=== PATIENT | male | born 1980 | race American Indian/Alaskan Native ===

== ENCOUNTER 2016-12-25 01:34 | Emergency (ER) | payer OTHER ==
[2016-12-25 01:34] VITALS: BMI 26.5
[2016-12-25 01:45] VITALS: BP 124/87; PULSE 79; RESP 18; TEMP 97.5; O2SAT 96
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
== END 2016-12-25 06:50 | disposition home or self-care (01) ==
LOC: H.ER 01:34
DX: F11.10 Opioid abuse, uncomplicated (principal)

== ENCOUNTER 2017-03-12 07:45 | Emergency (ER) | payer OTHER ==
[2017-03-12 07:45] VITALS: BMI 26.5
[2017-03-12 07:55] VITALS: BP 123/92; PULSE 97; RESP 18; TEMP 98; O2SAT 98
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
== END 2017-03-12 14:00 | disposition home or self-care (01) ==
LOC: H.ER 07:45
DX: F19.20 Other psychoactive substance dependence, uncomplicated (principal); F10.129 Alcohol abuse with intoxication, unspecified; I10 Essential (primary) hypertension; Z88.0 Allergy status to penicillin

== ENCOUNTER 2017-05-09 02:50 | Emergency (ER) | payer OTHER ==
[2017-05-09 02:51] VITALS: BMI 26.5
[2017-05-09 02:58] VITALS: BP 129/85; PULSE 77; RESP 18; TEMP 98.7; O2SAT 100
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
== END 2017-05-09 03:28 ==
LOC: H.ER 02:50
DX: F20.9 Schizophrenia, unspecified (principal); Z00.8 Encounter for other general examination; F12.10 Cannabis abuse, uncomplicated; F16.10 Hallucinogen abuse, uncomplicated

== ENCOUNTER 2017-05-09 09:34 | Emergency (ER) | payer OTHER ==
[2017-05-09 09:34] VITALS: BMI 26.5
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
[2017-05-09 10:12] VITALS: BP 136/86; PULSE 69; RESP 16; TEMP 98.1; O2SAT 96
== END 2017-05-09 10:25 ==
LOC: H.ER 09:34
DX: Z86.59 Personal history of other mental and behavioral disorders (principal); Z02.89 Encounter for other administrative examinations; Z00.8 Encounter for other general examination; Z88.0 Allergy status to penicillin

== ENCOUNTER 2017-07-10 18:59 | Emergency (ER) | payer OTHER ==
[2017-07-10 19:00] VITALS: BMI 26.5
--- NOTE | 2017-07-10 19:52 | ED PDOC ---
HPI: Psych/Substance Abuse Time Seen by Provider: 07/10/17 19:09 Chief Complaint (Nursing): Substance Abuse Chief Complaint (Provider): Altered Mental Status ED Caveat: Altered Mental Status, Intoxicated History Per: Patient, EMS History/Exam Limitations: intoxication Additional Complaint(s): 36 year old male presents to the ED brought in by EMS for altered mental status. Patient is poor historian due to intoxication. [place] and poorly responsive. He was able to report to EMS and police on scene that he had taken a few tabs of Percocet today. Otherwise, patient not volunteering any other information. Per previous charts reviewed, patient has history of schizophrenia and substance abuse. Past Medical History Reviewed: Historical Data, Nursing Documentation, Vital Signs Vital Signs: Last Vital Signs Temp 97.0 F L 07/10/17 19:03 Pulse 63 07/10/17 19:03 Resp 16 07/10/17 19:03 BP 157/83 H 07/10/17 19:03 Pulse Ox 99 07/10/17 19:03 - Medical History PMH: Bronchitis, Schizophrenia Denies: Diabetes, Hepatitis, HIV, HTN, Seizures, Sexually Transmitted Disease - Surgical History Surgical History: Back Surgery - Family History Family History: States: Unknown Family Hx - Living Arrangements Living Arrangements: Other (Undomiciled) - Immunization History Hx Tetanus Toxoid Vaccination: No Hx Influenza Vaccination: No Hx Pneumococcal Vaccination: No - Home Medications Home Medications: Ambulatory Orders Medication Instructions Recorded No Known Home Med 05/25/16 - Allergies Allergies/Adverse Reactions: Allergies Allergy/AdvReac Type Severity Reaction Status Date / Time Penicillins Allergy RASH Verified 12/25/16 01:43 PORK Allergy SWELLING Verified 10/08/16 09:18 Review of Systems Review Of Systems: ROS cannot be obtained secondary to pt's inabilty to answer questions. (Altered mental status) Physical Exam - Reviewed Nursing Documentation Reviewed: Yes Vital Signs Reviewed: Yes - Physical Exam Appears: Positive for: No Acute Distress (but dissheveled) Head Exam: Positive for: ATRAUMATIC, NORMOCEPHALIC Skin: Positive for: Warm, Dry Eye Exam: Positive for: EOMI, PERRL ENT: Positive for: Pharynx Is (clear) Neck: Positive for: Painless ROM, Supple Cardiovascular/Chest: Positive for: Regular Rate, Rhythm, Chest Non Tender. Negative for: Murmur Respiratory: Positive for: Normal Breath Sounds. Negative for: Wheezing Gastrointestinal/Abdominal: Positive for: Soft. Negative for: Tenderness Back: Positive for: Normal Inspection. Negative for: Muscle Spasm Extremity: Positive for: Normal ROM. Negative for: Deformity Lymphatic: Negative for: Adenopathy Neurologic/Psych: Positive for: Alert (but minimally communicative and confused) , Mood/Affect (flat). Negative for: Oriented, Motor/Sensory Deficits - Laboratory Results Result Diagrams: 07/10/17 19:48 07/10/17 19:48 - ECG ECG: Positive for: Interpreted By Me ECG Rhythm: Positive for: Normal ST Segment, Sinus Rhythm, Nonspecific Changes O2 Sat by Pulse Oximetry: 99 Pulse Ox Interpretation: Normal Medical Decision Making Medical Decision Making: Impression: Altered Mental Status Differential includes intoxication, electrolyte abnormality, metabolic encephalopathy, overdose Plan: -Head CT -Acetaminophen level -Blood alcohol -Drug Screen -Magnesium -Phosphorous -Salicylate -Urine dip -CBC -PT and PTT Nurse reports live found on patient as well. Permethrin ordered. Reviewed patient's previous charts. Multiple visits for substance abuse, PCP positive in previous UDS. 10p Pt ate in ER, but persistently lethargic. Observation continued. Scribe Attestation: Documented by Gerardo Jean Baptiste, acting as a scribe for Lyssa Bishop MD Provider Scribe Attestation: All medical record entries made by the Scribe were at my direction and personally dictated by me. I have reviewed the chart and agree that the record accurately reflects my personal performance of the history, physical exam, medical decision making, and the department course for this patient. I have also personally directed, reviewed, and agree with the discharge instructions and disposition. Disposition - Clinical Impression Clinical Impression: PCP (phencyclidine) abuse - Disposition Disposition: Transfer of Care Disposition Time: 00:00 Condition: STABLE Patient Signed Over To: Juan J La Handoff Comments: Pending sobriety
[2017-07-10 19:57] LABS: BASO # 0.1 K/uL (0.0-0.2); EOS # 0.1 K/uL (0.0-0.7); EOS % 2.2 % (0.0-4.0); LYMPH # 1.5 K/uL (1.0-4.3); LYMPH % 24.5 % (20.0-40.0); MEAN CELL VOLUME 87.4 fl (80.0-94.0); MEAN CORPUSCULAR HEMOGLOBIN 28.6 pg (27.0-31.0); MEAN CORPUSCULAR HGB CONC 32.8 g/dL (33.0-37.0); MEAN PLATELET VOLUME 7.4 fl (7.2-11.7); MONO # 0.7 K/uL (0.0-0.8); MONO % 11.3 % (0.0-10.0); NEUT # 3.7 K/uL (1.8-7.0); NRBC % 0.1 % (0.0-0.0); RED CELL DISTRIBUTION WIDTH 13.1 % (11.5-14.5)
[2017-07-10 20:11] LABS: ALB/GLOB RATIO 1.3 (1.0-2.1); ALCOHOL SERUM < 10 mg/dl (0-10); ALKALINE PHOSPHATASE 71 U/L (38-126); ALT/SGPT 34 U/L (21-72); AST/SGOT 33 U/L (17-59); BILIRUBIN,TOTAL 0.8 mg/dl (0.2-1.3); BLOOD UREA NITROGEN 7 mg/dl (9-20); CALCIUM 9.5 mg/dL (8.4-10.2); CARBON DIOXIDE 30 mmol/L (22-30); CHLORIDE 104 mmol/L (98-107); GFR AFRICAN-AMERICAN > 60; GLUCOSE,RANDOM 80 mg/dL (75-110); MAGNESIUM 2.3 MG/DL (1.6-2.3); PHOSPHOROUS 3.1 mg/dl (2.5-4.5); SODIUM 143 mmol/l (132-148); TOTAL PROTEIN 8.1 G/DL (6.3-8.2)
[2017-07-10 21:19] LABS: POTASSIUM 4.3 MMOL/L (3.6-5.0)
[2017-07-10] MEDS ORDERED: Permethrin 1% Kit 59 ML BOTTLE TOP ONE (21:26)
--- NOTE | 2017-07-11 00:15 | ED PDOC ---
- Laboratory Results Result Diagrams: 07/10/17 19:48 07/10/17 19:48 - ECG O2 Sat by Pulse Oximetry: 99 Medical Decision Making Medical Decision Making: Time: 0000 Patient signed out to me from Dr. Bishop pending sobriety. 0605 Upon re-evaluation, patient is awake, alert, and oriented x3. Patient is stable for discharge home. Scribe Attestation: Documented by Nhi Box and Lesly Gomez, acting as a scribe for Juan J La MD. Provider Scribe Attestation: All medical record entries made by the Scribe were at my direction and personally dictated by me. I have reviewed the chart and agree that the record accurately reflects my personal performance of the history, physical exam, medical decision making, and the department course for this patient. I have also personally directed, reviewed, and agree with the discharge instructions and disposition. Disposition - Clinical Impression Clinical Impression: PCP (phencyclidine) abuse - Disposition Disposition: Routine/Home Disposition Time: 06:05 Condition: STABLE Instructions: Polysubstance Abuse (ED) Forms: [employer] (Citizen [place])
[2017-07-11 05:18] VITALS: BP 140/94; PULSE 93; RESP 14; TEMP 98.2
[2017-07-11 06:16] VITALS: O2SAT 99
--- NOTE | 2017-07-11 12:09 | CARD ---
APPROVED REPORT EKG Measurement Heart [id number] <Conclusion> Normal sinus rhythm Incomplete right bundle branch block Nonspecific T wave abnormality Abnormal ECG
== END 2017-07-11 06:59 | disposition home or self-care (01) ==
LOC: H.ER 18:59
DX: F19.10 Other psychoactive substance abuse, uncomplicated (principal); F20.9 Schizophrenia, unspecified; Z88.0 Allergy status to penicillin

== ENCOUNTER 2017-08-12 14:03 | Emergency (ER) | payer OTHER ==
[2017-08-12 14:04] VITALS: BMI 26.5
[2017-08-12 14:10] VITALS: BP 118/75; PULSE 90; RESP 18; TEMP 98.5; O2SAT 100
[2017-08-12 16:01] LABS: HEMATOCRIT 40.8 % (35.0-51.0); MEAN CELL VOLUME 88.3 fl (80.0-94.0); MEAN CORPUSCULAR HEMOGLOBIN 28.5 pg (27.0-31.0); MEAN CORPUSCULAR HGB CONC 32.3 g/dL (33.0-37.0); RED CELL DISTRIBUTION WIDTH 13.3 % (11.5-14.5); WHITE BLOOD COUNT 5.9 K/uL (4.8-10.8)
[2017-08-12 16:10] LABS: ALB/GLOB RATIO 1.2 (1.0-2.1); ALCOHOL SERUM < 10 mg/dl (0-10); ALKALINE PHOSPHATASE 76 U/L (38-126); ALT/SGPT 30 U/L (21-72); AST/SGOT 17 U/L (17-59); BILIRUBIN,TOTAL 0.4 mg/dl (0.2-1.3); BLOOD UREA NITROGEN 12 mg/dl (9-20); CARBON DIOXIDE 28 mmol/L (22-30); CHLORIDE 110 mmol/L (98-107); GFR AFRICAN-AMERICAN > 60; GLUCOSE,RANDOM 70 mg/dL (75-110); POTASSIUM 3.8 MMOL/L (3.6-5.0); SODIUM 144 mmol/l (132-148); TOTAL PROTEIN 7.1 G/DL (6.3-8.2)
--- NOTE | 2017-08-12 16:20 | ED PDOC ---
HPI: General Adult Time Seen by Provider: 08/12/17 14:19 Chief Complaint (Nursing): Lower Extremity Problem/Injury Chief Complaint (Provider): Fall History Per: Patient History/Exam Limitations: no limitations Onset/Duration Of Symptoms: Days (x1) Additional History Per: EMS Additional Complaint(s): Black Rocha is a 36 year old male, with a past medical history of bronchitis and schizophrenia, who was brought to the emergency department by EMS for ETOH and head injury s/p fall onset today. Per EMS, patient was found on the ground and reported falling, hitting his head and knee. Upon arrival patient denies any injuries. In our records, patient has no previous history of alcohol abuse. No further medical complaints. Past Medical History Reviewed: Historical Data, Nursing Documentation, Vital Signs Vital Signs: Last Vital Signs Temp 98.5 F 08/12/17 14:07 Pulse 90 08/12/17 14:07 Resp 18 08/12/17 14:07 BP 118/75 08/12/17 14:07 Pulse Ox 100 08/12/17 17:02 - Medical History PMH: Bronchitis, Schizophrenia Denies: Diabetes, Hepatitis, HIV, HTN, Chronic Kidney Disease, Seizures, Sexually Transmitted Disease - Surgical History Surgical History: Back Surgery - Family History Family History: States: Unknown Family Hx - Social History Current smoker - smoking cessation education provided: Yes (Heavy smoker >10 cigarettes daily) Alcohol: Other (few days per week) Drugs: Other (PCP (per old chart)) - Immunization History Hx Tetanus Toxoid Vaccination: No Hx Influenza Vaccination: No Hx Pneumococcal Vaccination: No - Home Medications Home Medications: Ambulatory Orders Medication Instructions Recorded No Known Home Med 05/25/16 - Allergies Allergies/Adverse Reactions: Allergies Allergy/AdvReac Type Severity Reaction Status Date / Time Penicillins Allergy RASH Verified 12/25/16 01:43 PORK Allergy SWELLING Verified 10/08/16 09:18 Review of Systems ROS Statement: Except As Marked, All Systems Reviewed And Found Negative Constitutional: Negative for: Other (injuries) Musculoskeletal: Negative for: Leg Pain Psych: Negative for: Other (OH consumption) Physical Exam - Reviewed Nursing Documentation Reviewed: Yes Vital Signs Reviewed: Yes - Physical Exam Appears: Positive for: Well, Non-toxic, No Acute Distress Head Exam: Positive for: ATRAUMATIC, NORMAL INSPECTION, NORMOCEPHALIC Skin: Positive for: Normal Color, Warm, Dry Eye Exam: Positive for: EOMI, Normal appearance, PERRL Neck: Positive for: Normal, Painless ROM, Supple Respiratory: Negative for: Respiratory Distress Extremity: Positive for: Normal ROM. Negative for: Deformity, Swelling Neurologic/Psych: Positive for: Alert, Oriented - Laboratory Results Result Diagrams: 08/12/17 15:52 08/12/17 15:52 - ECG O2 Sat by Pulse Oximetry: 100 (RA) Pulse Ox Interpretation: Normal Medical Decision Making Medical Decision Making: Initial Plan: --Head w/o contrast [CT] --CBC, CMP, alcohol --reevaluation [address] FINDINGS: HEMORRHAGE: No intracranial hemorrhage. BRAIN: No mass effect or edema. No atrophy or chronic microvascular ischemic changes. VENTRICLES: Unremarkable. No hydrocephalus. CALVARIUM: Unremarkable. PARANASAL SINUSES: Moderate to severe right maxillary sinus mucosal thickening. MASTOID AIR CELLS: Unremarkable as visualized. No inflammatory changes. OTHER FINDINGS: Dysconjugate gaze. IMPRESSION: No acute intracranial pathology. Right maxillary sinus disease. 0 -CT and labs normal. Patient in bed with steady gait. Pt reports using PCP earlier today. ~ Scribe Attestation: Documented by Uday Ambrocio, acting as a scribe for Kassandra Kang PA-C. Provider Scribe Attestation: All medical record entries made by the Scribe were at my direction and personally dictated by me. I have reviewed the chart and agree that the record accurately reflects my personal performance of the history, physical exam, medical decision making, and the department course for this patient. I have also personally directed, reviewed, and agree with the discharge instructions and disposition. Disposition - Clinical Impression Clinical Impression: PCP (phencyclidine) abuse - Patient ED Disposition Is Patient to be Admitted: No - Disposition Disposition: Routine/Home Disposition Time: 17:14 Condition: STABLE Instructions: Polysubstance Abuse (ED) Forms: [employer] (Vietnamese)
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
== END 2017-08-12 17:20 | disposition home or self-care (01) ==
LOC: H.ER 14:03
DX: F16.10 Hallucinogen abuse, uncomplicated (principal); J32.0 Chronic maxillary sinusitis; Z88.0 Allergy status to penicillin; F17.210 Nicotine dependence, cigarettes, uncomplicated; Z86.59 Personal history of other mental and behavioral disorders

== ENCOUNTER 2017-08-31 08:34 | Emergency (ER) | payer OTHER ==
[2017-08-31 08:34] VITALS: BMI 26.5
[2017-08-31 08:53] VITALS: BP 127/80; PULSE 90; RESP 16; TEMP 98.2; O2SAT 96
--- NOTE | 2017-08-31 09:21 | ED PDOC ---
HPI: Psych/Substance Abuse Time Seen by Provider: 08/31/17 09:15 Chief Complaint (Nursing): Psychiatric Evaluation History Per: EMS Onset/Duration Of Symptoms: Unknown Current Symptoms Are (Timing): Still Present Modifying Factor(s): None Severity: Mild Associated Symptoms: Agitation. denies: Suicidal Thoughts Additional Complaint(s): [place] When awoken became aggressive. Denies SI/HI Past Medical History Vital Signs: Last Vital Signs Temp 98.2 F 08/31/17 08:52 Pulse 90 08/31/17 08:52 Resp 16 08/31/17 08:52 BP 127/80 08/31/17 08:52 Pulse Ox 96 08/31/17 08:52 - Medical History PMH: Bipolar Disorder, Bronchitis, Schizophrenia Denies: Diabetes, Hepatitis, HIV, HTN, Chronic Kidney Disease, Seizures, Sexually Transmitted Disease - Surgical History Surgical History: Back Surgery - Family History Family History: States: Unknown Family Hx - Immunization History Hx Tetanus Toxoid Vaccination: No Hx Influenza Vaccination: No Hx Pneumococcal Vaccination: No - Home Medications Home Medications: Ambulatory Orders Medication Instructions Recorded No Known Home Med 05/25/16 - Allergies Allergies/Adverse Reactions: Allergies Allergy/AdvReac Type Severity Reaction Status Date / Time Penicillins Allergy RASH Verified 12/25/16 01:43 PORK Allergy SWELLING Verified 10/08/16 09:18 Review of Systems ROS Statement: Except As Marked, All Systems Reviewed And Found Negative Physical Exam - Reviewed Nursing Documentation Reviewed: Yes Vital Signs Reviewed: Yes - Physical Exam Appears: Positive for: Non-toxic, No Acute Distress Head Exam: Positive for: ATRAUMATIC, NORMAL INSPECTION, NORMOCEPHALIC Skin: Positive for: Normal Color, Warm, DRY Eye Exam: Positive for: EOMI, Normal appearance, PERRL ENT: Positive for: Normal ENT Inspection Neck: Positive for: Normal, Painless ROM Cardiovascular/Chest: Positive for: Regular Rate, Rhythm Respiratory: Positive for: CNT, Normal Breath Sounds Gastrointestinal/Abdominal: Positive for: Normal Exam, Bowel Sounds, Soft Back: Positive for: Normal Inspection Extremity: Positive for: Normal ROM Neurologic/Psych: Positive for: Alert. Negative for: Motor/Sensory Deficits - ECG O2 Sat by Pulse Oximetry: 96 Disposition - Clinical Impression Clinical Impression: Substance abuse - Patient ED Disposition Is Patient to be Admitted: No - Disposition Referrals: [facility] [Outside] Disposition: Routine/Home Disposition Time: 11:18 Condition: FAIR Instructions: Polysubstance Abuse (ED) Forms: [employer] (Divehi)
--- NOTE | 2017-09-02 16:03 | CARD ---
APPROVED REPORT EKG Measurement Heart [id number] 154P66 [id number] <Conclusion> Normal sinus rhythm Possible Left atrial enlargement Borderline ECG
== END 2017-08-31 11:44 | disposition home or self-care (01) ==
LOC: H.ER 08:34
DX: F19.10 Other psychoactive substance abuse, uncomplicated (principal); F20.9 Schizophrenia, unspecified; F31.9 Bipolar disorder, unspecified; Z88.0 Allergy status to penicillin

== ENCOUNTER 2017-09-02 02:55 | Emergency (ER) | payer OTHER ==
[2017-09-02 02:55] VITALS: BMI 26.5
[2017-09-02 03:27] VITALS: BP 127/79; PULSE 89; RESP 18; TEMP 98.9; O2SAT 100
--- NOTE | 2017-09-02 03:57 | ED PDOC ---
HPI: Psych/Substance Abuse Time Seen by Provider: 09/02/17 03:23 Chief Complaint (Nursing): Alcohol Ingestion Chief Complaint (Provider): Alcohol Ingestion ED Caveat: Intoxicated History Per: EMS History/Exam Limitations: intoxication Onset/Duration Of Symptoms: Mins (prior to arrival) Current Symptoms Are (Timing): Still Present Additional Complaint(s): 36 year old male who presents to the emergency department via EMS for an evaluation of presumed intoxication. Currently patient has no complaints adn wishes to sleep. PMD: none provided Past Medical History Reviewed: Historical Data, Nursing Documentation, Vital Signs Vital Signs: Last Vital Signs Temp 98.9 F 09/02/17 03:04 Pulse 89 09/02/17 03:04 Resp 18 09/02/17 03:04 BP 127/79 09/02/17 03:04 Pulse Ox 100 09/02/17 03:04 - Medical History PMH: Bipolar Disorder, Bronchitis, Schizophrenia Denies: Diabetes, Hepatitis, HIV, HTN, Chronic Kidney Disease, Seizures, Sexually Transmitted Disease - Surgical History Surgical History: Back Surgery - Family History Family History: States: Unknown Family Hx - Immunization History Hx Tetanus Toxoid Vaccination: No Hx Influenza Vaccination: No Hx Pneumococcal Vaccination: No - Home Medications Home Medications: Ambulatory Orders Medication Instructions Recorded Piperonyl Butoxide/Pyrethrins 118 ml TP DAILY #1 shampoo 09/02/17 [Lice Treatment Shampoo] - Allergies Allergies/Adverse Reactions: Allergies Allergy/AdvReac Type Severity Reaction Status Date / Time Penicillins Allergy RASH Verified 09/02/17 03:24 PORK Allergy SWELLING Verified 09/02/17 03:24 Review of Systems ROS Statement: Except As Marked, All Systems Reviewed And Found Negative Physical Exam - Reviewed Nursing Documentation Reviewed: Yes Vital Signs Reviewed: Yes - Physical Exam Appears: Positive for: Well, Non-toxic, No Acute Distress Head Exam: Positive for: ATRAUMATIC, NORMAL INSPECTION, NORMOCEPHALIC ENT: Positive for: Normal ENT Inspection Neck: Positive for: Normal, Painless ROM Cardiovascular/Chest: Positive for: Regular Rate, Rhythm, Chest Non Tender Respiratory: Positive for: Normal Breath Sounds. Negative for: Decreased Breath Sounds, Respiratory Distress Gastrointestinal/Abdominal: Positive for: Normal Exam, Soft Extremity: Positive for: Normal ROM Neurologic/Psych: Positive for: supervisor burling and joining II-XII, Other (lice on scalp). Negative for : Alert, Oriented, Motor/Sensory Deficits, Mood/Affect, Aphasia - ECG O2 Sat by Pulse Oximetry: 100 (RA) Pulse Ox Interpretation: Normal Medical Decision Making Medical Decision Making: Initial Impression: Lice Initial Plan: * Arleen * D/c home Scribe Attestation: Documented by Mona Agrawal, acting as a scribe for Dash Williamson MD. Provider Scribe Attestation: All medical record entries made by the Scribe were at my direction and personally dictated by me. I have reviewed the chart and agree that the record accurately reflects my personal performance of the history, physical exam, medical decision making, and the department course for this patient. I have also personally directed, reviewed, and agree with the discharge instructions and disposition. Disposition - Clinical Impression Clinical Impression: Lice - Disposition Referrals: [facility] [Outside] Disposition: Routine/Home Disposition Time: 06:59 Condition: STABLE Prescriptions: Piperonyl Butoxide/Pyrethrins [Lice Treatment Shampoo] 118 ml TP DAILY #1 shampoo Instructions: Body Lice (ED) Forms: [employer] (Wolof)
== END 2017-09-02 07:16 | disposition home or self-care (01) ==
LOC: H.ER 02:55
DX: B85.2 Pediculosis, unspecified (principal); F10.129 Alcohol abuse with intoxication, unspecified; F20.9 Schizophrenia, unspecified; F31.9 Bipolar disorder, unspecified; Z88.0 Allergy status to penicillin

== ENCOUNTER 2017-09-09 10:00 | Emergency (ER) | payer OTHER ==
[2017-09-09 10:05] VITALS: BMI 28.0
[2017-09-09 13:08] VITALS: O2SAT 97
--- NOTE | 2017-09-09 14:34 | ED PDOC ---
HPI: Psych/Substance Abuse Time Seen by Provider: 09/09/17 10:05 Chief Complaint (Nursing): Syncope Chief Complaint (Provider): Found sleeping Additional Complaint(s): Pt found sleeping in [place]. Pt reports + drug and alcohol use today. No other complaints. Past Medical History Vital Signs: Last Vital Signs Temp 97.4 F L 09/09/17 10:04 Pulse 82 09/09/17 13:08 Resp 18 09/09/17 13:08 BP 173/96 H 09/09/17 10:04 Pulse Ox 97 09/09/17 13:08 - Medical History PMH: Bipolar Disorder, Bronchitis, Schizophrenia Denies: Diabetes, Hepatitis, HIV, HTN, Chronic Kidney Disease, Seizures, Sexually Transmitted Disease - Surgical History Surgical History: Back Surgery - Family History Family History: States: Unknown Family Hx - Immunization History Hx Tetanus Toxoid Vaccination: No Hx Influenza Vaccination: No Hx Pneumococcal Vaccination: No - Home Medications Home Medications: Ambulatory Orders Medication Instructions Recorded Piperonyl Butoxide/Pyrethrins 118 ml TP DAILY #1 shampoo 09/02/17 [Lice Treatment Shampoo] - Allergies Allergies/Adverse Reactions: Allergies Allergy/AdvReac Type Severity Reaction Status Date / Time Penicillins Allergy RASH Verified 09/02/17 03:24 PORK Allergy SWELLING Verified 09/02/17 03:24 Review of Systems Cardiovascular: Negative for: Chest Pain Respiratory: Negative for: Cough Gastrointestinal: Negative for: Abdominal Pain Neurological: Negative for: Headache, Dizziness Physical Exam - Reviewed Nursing Documentation Reviewed: Yes Vital Signs Reviewed: Yes - Physical Exam Appears: Positive for: Well, No Acute Distress Head Exam: Positive for: ATRAUMATIC, NORMAL INSPECTION Skin: Positive for: Normal Color (+ LIce), Warm, Dry Cardiovascular/Chest: Positive for: Regular Rate, Rhythm Respiratory: Positive for: Normal Breath Sounds Extremity: Positive for: Normal ROM Neurologic/Psych: Positive for: Alert, Oriented. Negative for: Motor/Sensory Deficits - ECG O2 Sat by Pulse Oximetry: 97 - Progress Re-evaluation Time: 14:00 Condition: Improved Medical Decision Making Medical Decision Makin yo found sleeping in [employer]. - EKG - accucheck - decontamination - EtOH level - UDS Disposition - Clinical Impression Clinical Impression: Substance abuse - Disposition Referrals: [facility] [Outside] Disposition: Routine/Home Disposition Time: 14:50 Condition: STABLE Instructions: Polysubstance Abuse (ED) Forms: [employer] (Greenlandic)
[2017-09-09 14:50] VITALS: BP 115/69; PULSE 84; RESP 16; TEMP 97.5
--- NOTE | 2017-09-10 09:27 | CARD ---
APPROVED REPORT EKG Measurement Heart [id number] [place] [id number] <Conclusion> Normal sinus rhythm Nonspecific T wave abnormality Abnormal ECG
== END 2017-09-09 15:24 | disposition home or self-care (01) ==
LOC: H.ER 10:00
DX: F19.10 Other psychoactive substance abuse, uncomplicated (principal); F20.9 Schizophrenia, unspecified; F31.9 Bipolar disorder, unspecified; Z88.0 Allergy status to penicillin

== ENCOUNTER 2017-10-15 16:37 | Emergency (ER) | payer OTHER ==
[2017-10-15 16:37] VITALS: BMI 28.0
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
--- NOTE | 2017-10-15 18:12 | RAD ---
HISTORY: cough COMPARISON: No prior. FINDINGS: LUNGS: No active pulmonary disease. PLEURA: No significant pleural effusion identified, no pneumothorax apparent. CARDIOVASCULAR: Normal. OSSEOUS STRUCTURES: No significant abnormalities. VISUALIZED UPPER ABDOMEN: Normal. OTHER FINDINGS: None. IMPRESSION: No active disease.
[2017-10-15 18:16] LABS: BASO % 1.1 % (0.0-2.0); EOS # 0.1 K/uL (0.0-0.7); EOS % 2.1 % (0.0-4.0); HEMOGLOBIN 14.6 g/dL (12.0-18.0); LYMPH # 1.4 K/uL (1.0-4.3); LYMPH % 34.4 % (20.0-40.0); MEAN CELL VOLUME 86.5 fl (80.0-94.0); MEAN CORPUSCULAR HEMOGLOBIN 28.2 pg (27.0-31.0); MEAN CORPUSCULAR HGB CONC 32.6 g/dL (33.0-37.0); MEAN PLATELET VOLUME 7.2 fl (7.2-11.7); MONO # 0.5 K/uL (0.0-0.8); MONO % 12.8 % (0.0-10.0); NEUT % 49.6 % (50.0-75.0); NRBC % 0.2 % (0.0-0.0); RBC 5.19 Mil/uL (4.40-5.90); RED CELL DISTRIBUTION WIDTH 13.4 % (11.5-14.5); WHITE BLOOD COUNT 4.1 K/uL (4.8-10.8)
[2017-10-15 18:19] LABS: ALB/GLOB RATIO 1.2 (1.0-2.1); ALBUMIN 4.2 g/dL (3.5-5.0); ALT/SGPT 35 U/L (21-72); AST/SGOT 31 U/L (17-59); BLOOD UREA NITROGEN 4 mg/dl (9-20); CALCIUM 9.5 mg/dL (8.4-10.2); GFR AFRICAN-AMERICAN > 60; GFR NON-AFRICAN AMERICAN > 60
[2017-10-15 20:16] VITALS: BP 134/80; PULSE 91; RESP 15; TEMP 98.5; O2SAT 98
--- NOTE | 2017-10-16 11:17 | CARD ---
APPROVED REPORT EKG Measurement Heart [id number] <Conclusion> Normal sinus rhythm with sinus arrhythmia Normal ECG
== END 2017-10-15 20:17 | disposition home or self-care (01) ==
LOC: H.ER 16:37
DX: F16.10 Hallucinogen abuse, uncomplicated; F20.9 Schizophrenia, unspecified; F31.9 Bipolar disorder, unspecified; Z88.0 Allergy status to penicillin

== ENCOUNTER 2018-03-29 14:27 | Emergency (ER) | payer OTHER ==
[2018-03-29 14:27] VITALS: BMI 28.0
[2018-03-29 14:34] VITALS: BP 130/78; PULSE 91; RESP 16; TEMP 98.6; O2SAT 98
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
== END 2018-03-29 15:23 ==
LOC: H.ER 14:27
DX: F19.10 Other psychoactive substance abuse, uncomplicated (principal); F10.129 Alcohol abuse with intoxication, unspecified; F17.200 Nicotine dependence, unspecified, uncomplicated; F20.9 Schizophrenia, unspecified; F31.9 Bipolar disorder, unspecified; G89.29 Other chronic pain; Z88.0 Allergy status to penicillin

== ENCOUNTER 2018-03-29 17:42 | Emergency (ER) | payer OTHER ==
[2018-03-29 17:42] VITALS: BMI 28.0
[2018-03-29 17:49] VITALS: BP 124/78; PULSE 62; RESP 16; TEMP 97.8; O2SAT 97
[2018-03-29] MEDS ORDERED: Sodium Chloride 0.9% 1,000 ML IV STA (18:01)
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
== END 2018-03-29 19:05 ==
LOC: H.ER 17:42
DX: F19.10 Other psychoactive substance abuse, uncomplicated (principal); F20.9 Schizophrenia, unspecified; F31.9 Bipolar disorder, unspecified; Z88.0 Allergy status to penicillin; G89.29 Other chronic pain

== ENCOUNTER 2018-04-25 13:52 | Emergency (ER) | payer OTHER ==
[2018-04-25 13:52] VITALS: BMI 28.0
[2018-04-25 13:59] VITALS: BP 133/94; TEMP 97
[2018-04-25 14:31] VITALS: PULSE 69; RESP 18; O2SAT 98
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
[2018-04-25 15:03] LABS: BASO % 0.5 % (0.0-2.0); EOS % 1.1 % (0.0-4.0); HEMOGLOBIN 13.4 g/dL (12.0-18.0); LYMPH # 1.1 K/uL (1.0-4.3); LYMPH % 33.7 % (20.0-40.0); MEAN CELL VOLUME 86.1 fl (80.0-94.0); MEAN CORPUSCULAR HEMOGLOBIN 29.2 pg (27.0-31.0); MEAN CORPUSCULAR HGB CONC 33.9 g/dL (33.0-37.0); MEAN PLATELET VOLUME 7.6 fl (7.2-11.7); MONO # 0.4 K/uL (0.0-0.8); MONO % 12.3 % (0.0-10.0); NEUT # 1.7 K/uL (1.8-7.0); NEUT % 52.4 % (50.0-75.0); NRBC % 0.1 % (0.0-0.0); RBC 4.58 Mil/uL (4.40-5.90); WHITE BLOOD COUNT 3.2 K/uL (4.8-10.8)
[2018-04-25 15:20] LABS: ALB/GLOB RATIO 1.3 (1.0-2.1); ALT/SGPT 25 U/L (21-72); AST/SGOT 20 U/L (17-59); BLOOD UREA NITROGEN 9 mg/dl (9-20); CALCIUM 9.2 mg/dL (8.4-10.2); GFR AFRICAN-AMERICAN > 60; GFR NON-AFRICAN AMERICAN > 60
[2018-04-25] MEDS ORDERED: Potassium Chloride 20 mEq ER Tab PO ONE (15:21)
--- NOTE | 2018-04-25 16:07 | CT ---
Date of service: 04/25/2018 PROCEDURE: CT HEAD WITHOUT CONTRAST. HISTORY: r/o bleed COMPARISON: 08/12/2017. TECHNIQUE: Axial computed tomography images were obtained through the head/brain without intravenous contrast. Radiation dose: Total exam DLP = 814.53 mGy-cm. This CT exam was performed using one or more of the following dose reduction techniques: Automated exposure control, adjustment of the mA and/or kV according to patient size, and/or use of iterative reconstruction technique. FINDINGS: HEMORRHAGE: No intracranial hemorrhage. BRAIN: Morales-white matter differentiation is preserved. There is no mass, mass effect or abnormal extra-axial fluid collection. There is redemonstration of cystic encephalomalacia and gliosis in the right temporal lobe. VENTRICLES: The ventricles are normal in size, shape and configuration. CALVARIUM: There is no calvarial fracture or extracranial soft tissue swelling. PARANASAL SINUSES: Predominantly clear. MASTOID AIR CELLS: Predominantly clear. OTHER FINDINGS: None. IMPRESSION: No acute intracranial abnormality. Redemonstration of cystic encephalomalacia in the right temporal lobe, sequela of remote insult.
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
--- NOTE | 2018-04-25 16:12 | RAD ---
Date of service: 04/25/2018 HISTORY: cough COMPARISON: 10/15/2017. FINDINGS: LUNGS: The lungs are well inflated and clear. PLEURA: No significant pleural effusion identified, no pneumothorax apparent. CARDIOVASCULAR: Normal. OSSEOUS STRUCTURES: No significant abnormalities. VISUALIZED UPPER ABDOMEN: Normal. OTHER FINDINGS: None. IMPRESSION: No acute findings.
--- NOTE | 2018-04-26 08:32 | CARD ---
APPROVED REPORT Date of service: 04/25/2018 <Conclusion> Normal sinus rhythm Normal ECG
== END 2018-04-25 16:23 ==
LOC: H.ER 13:52
DX: F19.10 Other psychoactive substance abuse, uncomplicated (principal); Z00.8 Encounter for other general examination; Z86.59 Personal history of other mental and behavioral disorders; Z72.0 Tobacco use; F12.10 Cannabis abuse, uncomplicated

== ENCOUNTER 2018-11-27 15:09 | Emergency (ER) | payer OTHER ==
[2018-11-27 15:09] VITALS: BMI 28.0
[2018-11-27 16:19] LABS: BASO % 0.4 % (0.0-2.0); EOS % 0.7 % (0.0-4.0); HEMOGLOBIN 13.6 g/dL (12.0-18.0); LYMPH # 0.8 K/uL (1.0-4.3); LYMPH % 20.2 % (20.0-40.0); MEAN CELL VOLUME 87.6 fl (80.0-94.0); MEAN CORPUSCULAR HEMOGLOBIN 28.1 pg (27.0-31.0); MEAN CORPUSCULAR HGB CONC 32.1 g/dL (33.0-37.0); MEAN PLATELET VOLUME 7.6 fl (7.2-11.7); MONO # 0.4 K/uL (0.0-0.8); MONO % 10.5 % (0.0-10.0); NEUT # 2.8 K/uL (1.8-7.0); NEUT % 68.2 % (50.0-75.0); RBC 4.83 Mil/uL (4.40-5.90); RED CELL DISTRIBUTION WIDTH 13.9 % (11.5-14.5); WHITE BLOOD COUNT 4.1 K/uL (4.8-10.8)
[2018-11-27 16:26] LABS: ALB/GLOB RATIO 1.3 (1.0-2.1); ALBUMIN 4.2 g/dL (3.5-5.0); ALT/SGPT 21 U/L (21-72); AST/SGOT 21 U/L (17-59); BLOOD UREA NITROGEN 12 mg/dl (9-20); CALCIUM 9.5 mg/dL (8.4-10.2); GFR NON-AFRICAN AMERICAN > 60
[2018-11-27] MEDS ORDERED: Sodium Chloride 0.9% 1,000 ML IV ONE (17:33)
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
[2018-11-27 19:48] LABS: BARBITURATES, UR NEGATIVE (NEGATIVE); BENZODIAZEPINES, UR NEGATIVE (NEGATIVE); OPIATES, UR NEGATIVE (NEGATIVE); PHENCYCLIDINE, UR POSITIVE (NEGATIVE)
--- NOTE | 2018-11-27 20:09 | ED PDOC ---
- Laboratory Results Result Diagrams: 11/27/18 15:40 11/27/18 15:40 Lab Results: Total Bilirubin 0.5 mg/dl (0.2-1.3) 11/27/18 15:40 AST 21 U/L (17-59) 11/27/18 15:40 ALT 21 U/L (21-72) 11/27/18 15:40 Alkaline Phosphatase 65 U/L (38-126) 11/27/18 15:40 Total Protein 7.5 G/DL (6.3-8.2) 11/27/18 15:40 Albumin 4.2 g/dL (3.5-5.0) 11/27/18 15:40 Globulin 3.3 gm/dL (2.2-3.9) 11/27/18 15:40 Albumin/Globulin Ratio 1.3 (1.0-2.1) 11/27/18 15:40 - ECG O2 Sat by Pulse Oximetry: 100 - Progress ED Course And Treament: Case endorsed to director underwriter sales from Jace SCHNEIDER pending sobriety 20:00 Patient sleeping; no distress 21:30 Patient sleeping; no distress 23:00 Patient sleeping; no distress 00:30 patient awake, alert, oriented x3. Ambulating steady gait Stable for discharge Disposition - Clinical Impression Clinical Impression: Substance abuse - POA Present On Arrival: None - Disposition Disposition: Routine/Home Disposition Time: 00:35 Condition: IMPROVED Instructions: Drug Abuse and Drug Addiction (DC)
[2018-11-28 02:05] VITALS: BP 118/76; PULSE 81; RESP 18; TEMP 97.2; O2SAT 97
--- NOTE | 2018-11-28 21:21 | CARD ---
APPROVED REPORT Date of service: 11/27/2018 EKG Measurement Heart [id number] <Conclusion> Normal sinus rhythm Prolonged QT Abnormal ECG
== END 2018-11-28 02:20 | disposition home or self-care (01) ==
LOC: H.ER 15:09
DX: F19.10 Other psychoactive substance abuse, uncomplicated (principal); F20.9 Schizophrenia, unspecified; F31.9 Bipolar disorder, unspecified; G89.29 Other chronic pain; Z88.0 Allergy status to penicillin; G93.89 Other specified disorders of brain